=== PATIENT | female | born 1975 | race American Indian/Alaskan Native ===

== ENCOUNTER 2016-11-26 21:22 | Inpatient (IN) | payer SELFPAY ==
[2016-11-26] MEDS ORDERED: NACL 0.9% 1000 ML 0 ML ONE (22:28)
[2016-11-26] MEDS ORDERED: NACL 0.9% 1000 ML 1,000 ML ONE (22:40)
--- NOTE | 2016-11-26 22:57 | Emergency Department Report ---
HPI - General Chief Complaint: Altered Mental Status Time Seen by Provider: 11/26/16 22:18 - HPI HPI: This is a 41-year-old Afro-[place] female who presents to the emergency department by EMS from home with altered mental status. The patient was normal when she went up stairs earlier today to take a bath. She was in the bath for too long so family went to check on her and found her unresponsive in the bathtub. She did not appear to be submerged in the water but there was concern that she might of hit her head. She has not regained normal mentation since that time. She has a past medical history of diabetes on both pills and insulin , CHF, hypertension. EMS found the patient to have hypotension and she reached as low as a systolic in the 40s. Patient currently is only responsive to painful stimuli and therefore a poor historian. The patient's sister and daughter are bedside. ED Past Medical Hx - Past Medical History Hx Hypertension: Yes Hx Congestive Heart Failure: Yes Hx Diabetes: Yes Additional medical history: neuropathy - Surgical History Hx Cholecystectomy: Yes Additional Surgical History: - Social History Smoking Status: Never Smoker Substance Use Type: None - Medications Home Medications: Home Medications Medication Instructions Recorded Confirmed Last Taken Type Amitriptyline [Elavil] 10 mg PO QHS 11/27/16 11/27/16 Unknown History Carvedilol [Coreg] 25 mg PO BID 11/27/16 11/27/16 Unknown History Furosemide [Lasix TAB] 40 mg PO QDAY 11/27/16 11/27/16 Unknown History Insulin Aspart Prot/Aspart 40 units SQ QDAY 11/27/16 11/27/16 Unknown History [Novolog Mix 70/30] Insulin Detemir [Levemir] 80 unit SQ QDAY 11/27/16 11/27/16 Unknown History Ondansetron [Zofran TAB] 4 mg PO Q6H PRN 11/27/16 11/27/16 Unknown History Pregabalin [Lyrica] 200 mg PO TID 11/27/16 11/27/16 Unknown History Quinapril/Hydrochlorothiazide 1 each PO BID 11/27/16 11/27/16 Unknown History [Quinapril-Hctz 10-12.5 mg Tab] ED Review of Systems ROS: Stated complaint: SYNCOPE Other details as noted in HPI Comment: Unobtainable due to pts medical conditions Physical Exam - Physical Exam Vital Signs: Vital Signs 11/26/16 22:20 Temperature 97.2 F L Pulse Rate 85 Blood Pressure 55/31 O2 Sat by Pulse 93 Oximetry Physical Exam: GENERAL: The patient is well-developed well-nourished. HEENT: Normocephalic. Atraumatic. There is equal reactive to light bilaterally. Patient has moist mucous membranes. NECK: Supple. Trachea is midline. CHEST/LUNGS: Clear to auscultation. There is no respiratory distress noted. HEART/CARDIOVASCULAR: Regular. There is no tachycardia. There is no gallop rub or murmur. ABDOMEN: Abdomen is soft, nontender. Patient has normal bowel sounds. There is no abdominal distention. SKIN: There is no rash. There is no edema. There is no diaphoresis. NEURO: Patient has only arousable to painful stimuli. She does not follow any commands. Patient is nonverbal and nonresponsive. MUSCULOSKELETAL: There is no tenderness or deformity. There is no evidence of acute injury. ED Course Vital Signs 11/26/16 22:20 Temperature 97.2 F L Pulse Rate 85 Blood Pressure 55/31 O2 Sat by Pulse 93 Oximetry - Reevaluation(s) Reevaluation #1: patient is now awake and alert AAO x 3. She says she remembers feeling dizzy and then passed out and hit her head. She also complains of right knee pain so X -ray ordered. BP has stabilized but patient will be admitted for further evaluation. 11/27/16 00:33 ED Medical Decision Making - Lab Data Result diagrams: 11/26/16 22:46 11/26/16 22:46 - EKG Data -: EKG Interpreted by Me EKG shows normal: sinus rhythm, axis, intervals, QRS complexes, ST-T waves ( nonspecific ST-T) Rate: normal - EKG Data When compared to previous EKG there are: previous EKG unavailable Interpretation: nonspecific ST-T wave daniel - Radiology Data Radiology results: report reviewed, image reviewed interpreted by me: Chest x-ray did not show any acute process. Heart is normal shape and size. No effusions. No pneumothorax. No signs of pneumonia seen. X-ray of the right knee does not show any fracture, dislocation or any acute process. CT of the head does not show any acute process including no hemorrhage, mass, shift, diffuse edema or skull fracture. - Medical Decision Making 41-year-old female presents to the emergency department unresponsive after being found unresponsive in a bathtub about one hour after telling family she was going to take a bath. Patient was evaluated in the emergency Department with physical exam, labs, imaging EKG. At first on physical exam the patient is unresponsive to have anything but painful stimuli. She has normal sounding heart and lungs to auscultation. Vital signs are stable throughout her ED course. Eventually, just prior to admission, the patient became awake and alert , AAO 3. Now all cranial nerves are intact. CT of the brain does not show any bleed, shift, mass or any acute process. EKG did not show any signs of ST elevation IN. The patient's labs are mostly unremarkable except for a mild urinary tract infection. The labs do not show any etiology of the patient's transient altered mental status. Patient could've had a seizure versus prolonged syncope versus other. She did present with hypotension with a systolic blood pressure that was in the 50s and 60s. However the patient responded well to IV fluid resuscitation and even now has started to get more on the hypertensive side. She'll be admitted to the hospital for further evaluation and has been accepted for [facility] by the hospitalist, Dr. Hernandez. - Differential Diagnosis seizure, syncope, TIA, brain bleed, IN Critical Care Time: No Critical care attestation.: If time is entered above; I have spent that time in minutes in the direct care of this critically ill patient, excluding procedure time. ED Disposition Clinical Impression: Altered mental status Qualifiers: Altered mental status type: unspecified Qualified Code(s): R41.82 - Altered mental status, unspecified Hypotension Qualifiers: Hypotension type: unspecified hypotension type Qualified Code(s): I95.9 - Hypotension, unspecified UTI (urinary tract infection) Qualifiers: Urinary tract infection type: acute cystitis Hematuria presence: without hematuria Qualified Code(s): N30.00 - Acute cystitis without hematuria Disposition: OP ADMITTED IP TO THIS HOSP Is pt being admited?: Yes Condition: Stable Time of Disposition: 03:19
[2016-11-26 23:04] LABS: Basophils % (Auto) 0.4 % (0.0-1.8); Hemoglobin 13.4 gm/dl (10.1-14.3); Mean Corpuscular HGB Conc 34 % (30-34); Mean Corpuscular Hemoglobin 30 pg (28-32); Mean Corpuscular Volume 89 fl (79-97); Platelet Count 328 K/mm3 (140-440); Red Blood Count 4.52 M/mm3 (3.65-5.03); Red Cell Distribution Width 14.4 % (13.2-15.2); White Blood Count 4.8 K/mm3 (4.5-11.0)
[2016-11-26 23:14] LABS: INR 1.05 (0.87-1.13)
[2016-11-26 23:15] LABS: Partial Thromboplastin Time 27.6 Sec. (24.2-36.6)
--- NOTE | 2016-11-26 23:32 | Cat Scan Report ---
FINAL REPORT PROCEDURE: CT HEAD/BRAIN WO CON TECHNIQUE: Computerized tomography of the head was performed without contrast material. HISTORY: AMS COMPARISON: No prior studies are available for comparison. FINDINGS: Skull and scalp: Normal. Paranasal sinuses: Normal. Ventricles and subarachnoid spaces: Normal. Cerebrum: No evidence of hemorrhage, acute infarction or mass . Cerebellum and brainstem: No evidence of hemorrhage, acute infarction or mass. Vasculature: Normal. Comments: None. IMPRESSION: Normal Examination
[2016-11-26 23:36] LABS: Urine Drugs of Abuse Note Disclamer
[2016-11-26 23:38] LABS: Alanine Aminotransferase 18 units/L (7-56); Albumin 3.9 g/dL (3.9-5); Alkaline Phosphatase 81 units/L (35-129); Anion Gap 19 mmol/L; Bilirubin,Total 0.2 mg/dL (0.1-1.2); Blood Urea Nitrogen 13 mg/dL (7-17); Calcium 9.3 mg/dL (8.4-10.2); Carbon Dioxide 23 mmol/L (22-30); Chloride 97.9 mmol/L (98-107); Glucose 141 mg/dL (65-100); Potassium 4.1 mmol/L (3.6-5.0); Sodium 136 mmol/L (137-145); Total Protein 7.9 g/dL (6.3-8.2)
[2016-11-26 23:55] LABS: Bacteria,Urine 1+ /HPF (Negative); Bilirubin,Urine NEG (Negative); Blood,Urine NEG (Negative); Ketones,Urine NEG (Negative); Leukocyte Esterase,Urine MOD (Negative); Mucus,Urine FEW /HPF; Nitrite,Urine NEG (Negative)
[2016-11-27] MEDS ORDERED: LEVAQUIN 750MG/150ML 150 ML IV ONE (00:18)
--- NOTE | 2016-11-27 01:29 | Admit Criteria Form ---
Admission Criteria Documentation: ACUTE LOSS OF CONSCIOUSNESS- ALOC Clinical Indications for Inpatient Care (Place 'X' for any and all applicable criteria): Ongoing inpatient care may be needed for ANY ONE of the following(1)(2)(3)(5)(6) : [ ]I. Suspected serious etiology (eg, medical disorder, SHINGLE SAWYER event) of mental status change [ ]II. Danger to self or others not manageable at lower level of care [ ]III. Grave disability (eg, inability to perform self care necessary at lower level of care) [ ]IV. Agitation or inappropriate behavior interfering with care for primary condition (eg, attempting to discontinue lines or drains prematurely, unable to cooperate with respiratory care) [ ]V. Delirium [A] [D][E] as described by ANY ONE of the following(26): [ ]a) Delirium due to alcohol or sedative [F] withdrawal [ ]b) Delirium of uncertain etiology that has not responded to appropriate empiric treatment [ ]c) Delirium that prevents performance of a life-sustaining function (eg, feeding or hydrating oneself) [ X]. General contraindications and/or Inappropriate clinical situations for Observational Care in patients with Acute Loss of Consciousness, when ANY ONE of the following is required: [ ]a) Prediction of prolongation of LOS based on ANY ONE of the following may be considered as a contraindication for observational care 2, 3, 4, 5, 6, 7, 8 , 9, 10, 11 [ ]i) Age > 65 yrs. [ X]ii) Patient arriving by ambulance [X ]iii) Patient with high acuity [ X]iv) Patient requiring vital sign monitoring [ ]v) Patient on IV medication [ ]b) Systolic blood pressures 180mmHg 3,12 [ ]c) Patient with altered mental status including delirium and other alteration of consciousness, (3) [ ]d) Patient whose discharge disposition will be to a care home home or rehabilitation home should not be managed in Emergency Department Observation Unit. CMS rule requires 3 days hospital stay before such placement.3,13 [ ]e) Patient with failure to thrive due to broad array of etiologies 3,16,17 [ ]f) Inability to ambulate 3,14 Extended stay beyond goal length of stay for the primary condition may be needed until ALL of the following are present(3)(5): [ ]a) Underlying medical etiology of mental status change is absent, or has been established and adequately treated [ ]b) Danger to self or others is absent or manageable at lower level of care. [ ]c) Behavior crisis management, including physical or chemical restraints, is not required or available at lower level of car [ ]d) Substance or alcohol withdrawal is absent or manageable at lower level of care. [ ]e) Behavioral symptoms (eg, agitation, somnolence, inappropriate behavior) are absent, or are manageable at lower level of care. The original [facility] content created by [facility] has been revised. The portions of the content which have been revised are identified through the use of italic text or in bold, and [facility] has neither reviewed nor approved the modified material. All other unmodified content is copyright [facility]. Please see references footnoted in the original [facility] edition 2016 Admission Criteria Met: Yes
[2016-11-27] MEDS ORDERED: NORMODYNE IV ONE (03:09)
[2016-11-27] MEDS ORDERED: APRESOLINE IV PRN (03:23)
[2016-11-27] MEDS ORDERED: MILK OF MAGNESIA PO PRN (03:32)
[2016-11-27] MEDS ORDERED: ZOFRAN IV PRN (03:32)
[2016-11-27] MEDS ORDERED: DULCOLAX PR PRN (03:32)
[2016-11-27] MEDS ORDERED: TYLENOL ONE (03:45)
[2016-11-27] MEDS: TYLENOL PO PRN ×2 (03:53→15:51)
[2016-11-27 04:57] LABS: Creatine Kinase MB 1.7 ng/mL (0.0-4.0)
[2016-11-27 04:58] LABS: Creatine Kinase 122 units/L (30-135)
--- NOTE | 2016-11-27 05:40 | History and Physical Report ---
History of Present Illness Date of examination: 11/27/16 Date of admission: 11/27/16 03:32 History of present illness: 41-year-old woman with a history of hypertension, diabetes, CHF comes emergency room because she felt dizzy yesterday evening. She went to shower, she was taking long time, finally went to check on her and found her passed out in the bathroom. Patient was hypotensive upon arrival in the emergency room Patient denies chest pain, palpitation, shortness of breath, cough, abdominal pain, hematochezia, dysuria, frequency, focal weakness, dysarthria, fever chills , polydipsia polyuria, hot or cold intolerance, easy bruisability, or rash or bleeding from mucosal membrane, rhinorrhea, epistaxis, earache, tinnitus, blurry vision, eye discharge, anxiety, depression. Other review of systems negative PAST SURGICAL HISTORY: Cholecystectomy, SOCIAL HISTORY: Denies alcohol, tobacco, drugs FAMILY HISTORY: Hypertension Medications and Allergies Allergies Allergy/AdvReac Type Severity Reaction Status Date / Time codeine Allergy Rash Verified 11/26/16 22:27 Penicillins Allergy Anaphylaxis Verified 11/26/16 22:27 Home Medications Medication Instructions Recorded Confirmed Last Taken Type Amitriptyline [Elavil] 10 mg PO QHS 11/27/16 11/27/16 Unknown History Carvedilol [Coreg] 25 mg PO BID 11/27/16 11/27/16 Unknown History Furosemide [Lasix TAB] 40 mg PO QDAY 11/27/16 11/27/16 Unknown History Insulin Aspart Prot/Aspart 40 units SQ QDAY 11/27/16 11/27/16 Unknown History [Novolog Mix 70/30] Insulin Detemir [Levemir] 80 unit SQ QDAY 11/27/16 11/27/16 Unknown History Ondansetron [Zofran TAB] 4 mg PO Q6H PRN 11/27/16 11/27/16 Unknown History Pregabalin [Lyrica] 200 mg PO TID 11/27/16 11/27/16 Unknown History Quinapril/Hydrochlorothiazide 1 each PO BID 11/27/16 11/27/16 Unknown History [Quinapril-Hctz 10-12.5 mg Tab] Active Meds: Active Medications Acetaminophen (Tylenol) 650 mg PO Q4H PRN PRN Reason: Pain MILD(1-3)/Fever >100.5/NICHLOSON Last Admin: 11/27/16 03:53 Dose: 650 mg Bisacodyl (Dulcolax) 10 mg DC QDAY PRN PRN Reason: Constipation unrelieved by MOM Enoxaparin Sodium (Lovenox) 40 mg SUB-Q QDAY IZABELLA Hydralazine HCl (Apresoline) 5 mg IV Q6H PRN PRN Reason: Hypertension Magnesium Hydroxide (Milk Of Magnesia) 30 ml PO Q4H PRN PRN Reason: Constipation Ondansetron HCl (Zofran) 4 mg IV Q8H PRN PRN Reason: N/V unrelieved by Reglan Exam - Physical Exam Narrative exam: Gen. appearance: Patient lying in bed, no apparent distress HEENT: Normocephalic, atraumatic, pupils equally round and reactive to light, extraocular movement intact, and no sclericterus,. No JVD or thyromegaly or nodule,neck supple, no carotid bruit ,mucous membranes moist, no exudate or erythema Heart: S1, S2, regular rate and rhythm Lungs: Clear to auscultation bilaterally, breathing comfortable Abdomen: Positive bowel sounds, nontender, nondistended, no organomegaly Extremity: No edema, cyanosis, clubbing Skin: No rash, nodules, warm, dry Neuro: Oriented 3, cranial nerves II-12 intact, speech is fluent, motor and sensory intact - Constitutional Vitals: Temp Pulse Resp BP Pulse Ox 97.2 F L 95 H 15 118/90 100 11/26/16 22:20 11/27/16 05:00 11/27/16 05:00 11/27/16 05:00 11/27/16 05:00 Results - Labs CBC & Chem 7: 11/26/16 22:46 11/26/16 22:46 Labs: Abnormal lab results 11/27/16 Range/Units 04:06 D-Dimer 470.56 H (0-234) ng/mlDDU - Imaging and Cardiology CT Scan - head: report reviewed Assessment and Plan Syncope UTI Hypertension Diabetes of 2 CHF, stable Admits medicine Check cardiac enzymes, d-dimer, echo, carotid Doppler, orthostatics Consult cardiology Check fingersticks initiate insulin sliding scale, start levaquin Start DVT prophylaxis, continue Procrit outpatient medication D-dimer elevated, check VQ scan
--- NOTE | 2016-11-27 07:55 | Nuclear Medicine Report ---
LUNG SCAN, VENTILATION AND PERFUSION: History: Chest pain, syncope. Technique: 5mci of Tc99m MAA was infused for the perfusion images. 15mci XE 133 gas was inhaled for the ventilatory images. Correlation is made with a chest x-ray dated 11/26/16 at 2259 hrs. Findings: Inhalation of Xenon gas demonstrates a normal distribution of the activity throughout both lungs. The wash out phases show no focal retention of activity. After injection of Technetium 99m macroaggregated albumin gamma camera imaging of the lungs in multiple projections demonstrates normal pulmonary contours with a homogeneous distribution of activity. No focal areas of perfusion deficiency are identified. IMPRESSION: Low probability for pulmonary embolus.
--- NOTE | 2016-11-27 07:55 | XRay Report ---
AP CHEST: HISTORY: Chest pain, altered mental status Poor inspiration. AP view of the chest demonstrates a normal mediastinal and cardiac contour with clear lungs and normal bony and soft tissue structures. IMPRESSION: Unremarkable AP chest.
--- NOTE | 2016-11-27 07:56 | XRay Report ---
RIGHT KNEE, 3 views: History: Right knee pain. The bony architecture is intact without evidence of fracture or dislocation. No significant soft tissue abnormality is seen. IMPRESSION: Normal right knee.
[2016-11-27] MEDS: LYRICA PO SCH ×6 (08:45→20:40)
[2016-11-27] MEDS ORDERED: HCTZ PO SCH (10:00)
[2016-11-27 10:14] LABS: Creatine Kinase MB 1.6 ng/mL (0.0-4.0)
[2016-11-27 10:15] LABS: Creatine Kinase 146 units/L (30-135)
[2016-11-27] MEDS: COREG PO SCH ×2 (10:15→22:21)
[2016-11-27] MEDS: LASIX PO SCH (10:15)
[2016-11-27] MEDS: HCTZ PO SCH ×2 (10:15→22:26)
[2016-11-27] MEDS: LEVAQUIN PO SCH (10:15)
[2016-11-27] MEDS: LOVENOX SUB-Q SCH (10:22)
[2016-11-27] MEDS: ZESTRIL PO SCH ×2 (10:23→22:25)
[2016-11-27] MEDS ORDERED: ASPIRIN PO ONE (13:02)
--- NOTE | 2016-11-27 14:00 | Consultation ---
History of Present Illness Consult date: 11/27/16 Consult reason: syncope History of present illness: 41-year-old woman with a history of diabetes, brought to the hospital after being found unresponsive at home in her bathtub. She is currently awake, alert , denies chest pain or shortness of breath or palpitations. She cannot remember the events leading up to this syncope, and cannot remember how she got into the bathtub. There is no prior cardiac history. She reports episodes of syncope in the remote past, which she sees where associated with episodes of hypoglycemia. On the current presentation, after an exhaustive review of her incoming records from the field and in the emergency room, there is no report of a blood sugar measurement at the time of her first encounter with the emergency medical system. The hospital laboratory value drawn in the emergency room blood sugar was 141. It is uncertain if she has had intravenous fluids and given dextrose prior to this measurement. Cardiac workup includes an ECG, that revealed normal sinus rhythm, borderline inferior Q waves otherwise normal ECG. Cardiac enzymes were normal. Chest x- ray is negative. Past History Past Medical History: diabetes, hypertension, other (Obesity) Medications and Allergies Allergies Allergy/AdvReac Type Severity Reaction Status Date / Time codeine Allergy Rash Verified 11/26/16 22:27 Penicillins Allergy Anaphylaxis Verified 11/26/16 22:27 Home Medications Medication Instructions Recorded Confirmed Last Taken Type Amitriptyline [Elavil] 10 mg PO QHS 11/27/16 11/27/16 Unknown History Carvedilol [Coreg] 25 mg PO BID 11/27/16 11/27/16 Unknown History Furosemide [Lasix TAB] 40 mg PO QDAY 11/27/16 11/27/16 Unknown History Insulin Aspart Prot/Aspart 40 units SQ QDAY 11/27/16 11/27/16 Unknown History [Novolog Mix 70/30] Insulin Detemir [Levemir] 80 unit SQ QDAY 11/27/16 11/27/16 Unknown History Ondansetron [Zofran TAB] 4 mg PO Q6H PRN 11/27/16 11/27/16 Unknown History Pregabalin [Lyrica] 200 mg PO TID 11/27/16 11/27/16 Unknown History Quinapril/Hydrochlorothiazide 1 each PO BID 11/27/16 11/27/16 Unknown History [Quinapril-Hctz 10-12.5 mg Tab] Active Meds: Active Medications Acetaminophen (Tylenol) 650 mg PO Q4H PRN PRN Reason: Pain MILD(1-3)/Fever >100.5/NICHOLSON Last Admin: 11/27/16 03:53 Dose: 650 mg Amitriptyline HCl (Elavil) 10 mg PO QHS [facility] Bisacodyl (Dulcolax) 10 mg MA QDAY PRN PRN Reason: Constipation unrelieved by MOM Carvedilol (Coreg) 25 mg PO BID [facility] Last Admin: 11/27/16 10:15 Dose: 25 mg Enoxaparin Sodium (Lovenox) 40 mg SUB-Q QDAY [facility] Last Admin: 11/27/16 10:22 Dose: 40 mg Furosemide (Lasix) 40 mg PO QDAY [facility] Last Admin: 11/27/16 10:15 Dose: 40 mg Hydralazine HCl (Apresoline) 5 mg IV Q6H PRN PRN Reason: Hypertension Hydrochlorothiazide (Hctz) 12.5 mg PO BID [facility] Last Admin: 11/27/16 10:15 Dose: 12.5 mg Levofloxacin (Levaquin) 500 mg PO Q24HR [facility] Last Admin: 11/27/16 10:15 Dose: 500 mg Lisinopril (Zestril) 5 mg PO BID [facility] Last Admin: 11/27/16 10:23 Dose: 5 mg Magnesium Hydroxide (Milk Of Magnesia) 30 ml PO Q4H PRN PRN Reason: Constipation Ondansetron HCl (Zofran) 4 mg IV Q8H PRN PRN Reason: N/V unrelieved by Reglan Pregabalin (Lyrica) 150 mg PO TID [facility] Last Admin: 11/27/16 08:45 Dose: 150 mg Pregabalin (Lyrica) 50 mg PO TID [facility] Last Admin: 11/27/16 08:45 Dose: 50 mg Review of Systems Cardiovascular: syncope, no chest pain, no orthopnea, no palpitations, no rapid/ irregular heart beat, no edema, no lightheadedness, no shortness of breath Physical Examination Vital Signs Temp Pulse BP Pulse Ox 97.2 F L 85 55/31 93 11/26/16 22:20 11/26/16 22:20 11/26/16 22:20 11/26/16 22:20 General appearance: no acute distress HEENT: Positive: PERRL Neck: Positive: neck supple Cardiac: Positive: Reg Rate and Rhythm Lungs: Positive: clear to auscultation Neuro: Positive: Grossly Intact Abdomen: Positive: Soft Female genitourinary: deferred Skin: Positive: Clear Extremities: Absent: edema Results 11/26/16 22:46 11/26/16 22:46 Cardiac Enzymes 11/27/16 11/27/16 Range/Units 04:06 09:08 CK-MB (CK-2) 1.7 1.6 (0.0-4.0) ng/mL EKG interpretations - Telemetry EKG Rhythm: Sinus Rhythm Assessment and Plan - Patient Problems (1) Syncope Current Visit: Yes Status: Acute Plan to address problem: Etiology of the patient's unresponsiveness unclear, likely etiologies include hypoglycemia, versus vasodepressive syncope versus neurogenic syncope. Doubt cardiac etiology. Recommendations: Neuro workup is in recommended including workup for possible seizures. We will get an echocardiogram for left ventricular function assessment. Otherwise, conservative cardiac approach to management.
[2016-11-27] MEDS: NOVOLOG SUB-Q SCH ×2 (16:18→22:49)
--- NOTE | 2016-11-27 17:44 | Echocardiography Report ---
Transthoracic Echocardiogram Indication: SYNCOPE BP: 153/106 HR: 100 Findings Procedure Info: The study quality is technically difficult. The study is technically limited due to poor acoustic windows. The study is technically limited due to patient body habitus. Left Ventricle: The left ventricular chamber size is normal. Mild to moderate concentric left ventricular hypertrophy is observed. Global left ventricular systolic function is normal. The estimated ejection fraction is 55-60%. Left Atrium: The left atrial chamber size is normal. Right Ventricle: The right ventricle is not well visualized. The right ventricular cavity size is normal. The right ventricular global systolic function is normal. Right Atrium: The right atrium is not well visualized. The right atrial cavity size is normal. Aortic Valve: The aortic valve is trileaflet. The aortic valve leaflets are mildly thickened. There is no evidence of aortic regurgitation. There is no evidence of aortic stenosis. Mitral Valve: The mitral valve is not well visualized. The mitral valve leaflets appear myxomatous. The mitral valve leaflets are mildly thickened. There is mild mitral regurgitation. There is no evidence of mitral stenosis. Tricuspid Valve: The tricuspid valve is not well visualized. There is trace tricuspid regurgitation. No pulmonary hypertension is noted. There is no tricuspid stenosis. Pulmonic Valve: The pulmonic valve is not well visualized. There is no evidence of pulmonic regurgitation. There is no pulmonic stenosis. Pericardium: There is no pericardial effusion. No pleural effusion is present. Aorta: There is no dilatation of the ascending aorta. There is no dilatation of the aortic root. Contrast: Definity was used to optimize study. Intravenous contrast was used to enhance endocardial border definition. Measurements Chambers 2D Name Value Normal Range IVSd (2D) 1.14 cm (0.6 - 1.1) LVPWd 1.2 cm - LVPWd (2D) 1.2 cm (0.6 - 1.1) IVS:LVPW ratio (2D) 0.95 ratio - LVIDd 3.2 cm - LVIDs 2.4 cm - LVIDd (2D) 3.22 cm (3.7 - 5.6) LVIDs (2D) 2.37 cm (2 - 3.8) LV FS (Teichholz) (2D) 26.4 % - LV FS (cube) (2D) 26.4 % - EF Teichholz (2D) 53.1 % - LA dimension 2.8 cm - Ao root diameter (2D) 2.6 cm (2 - 3.7) LA dimension (AP) 2D 2.8 cm (1.9 - 4) LA:Ao ratio (2D) 1.08 ratio - Volumes/Mass Name Value Normal Range LA ESV SP 4CH (MOD) 9 ml - LV EDV SP 4CH (MOD) 42 ml - LV ESV SP 4CH (MOD) 13 ml - EF SP 4CH (MOD) 69 % - Diastolic/Systolic Function Name Value Normal Range MV E-wave Vmax 0.42 m/sec - MV deceleration time 140 msec - MV A-wave Vmax 0.7 m/sec - MV E:A ratio 0.6 ratio - LV septal e' Vmax 0.06 m/sec - LV lateral e' Vmax 0.13 m/sec - LV E:e' septal ratio 7.4 ratio - LV E:e' lateral ratio 3.2 ratio - Aortic Valve Name Value Normal Range AV Vmax 1.11 m/sec - AV VTI 15.5 cm - AV peak gradient 5 mmHg - AV mean gradient 3 mmHg - LVOT diameter 1.8 cm - LVOT Vmax 0.8 m/sec - LVOT peak gradient 3 mmHg - HANNAH (continuity Vmax) 1.82 cm2 - Pulmonic Valve/Qp:Qs Name Value Normal Range PV Vmax 0.72 m/sec - PV peak gradient 2 mmHg - PV acceleration time 100 msec -
[2016-11-27] MEDS: ELAVIL PO SCH (22:23)
--- NOTE | 2016-11-28 13:26 | Progress Note ---
Assessment and Plan Syncope, etiology unclear likely etiologies include hypoglycemia, versus vasodepressive syncope versus neurogenic syncope. Doubt cardiac etiology. echo done this admission shows an LVEF 50-55% Diabetes Recommendations: Neuro workup is in recommended including workup for possible seizures. Otherwise, conservative cardiac management. Subjective Date of service: 11/28/16 Interval history: Patient complains of left shoulder pain. Objective Vital Signs Temp Pulse Pulse Pulse Pulse Resp BP 11/28/16 03:39 97.6 F 94 H 20 11/28/16 00:00 99.3 F 101 H 21 11/27/16 22:25 109/77 11/27/16 22:21 107 H 110/77 11/27/16 22:00 103 H 11/27/16 20:30 11/27/16 20:00 98.6 F 101 H 20 11/27/16 18:35 102 H 11/27/16 16:57 98.5 F 103 H 20 BP BP Pulse Ox 11/28/16 03:39 91/65 96 11/28/16 00:00 129/81 96 11/27/16 22:25 11/27/16 22:21 11/27/16 22:00 98 11/27/16 20:30 98 11/27/16 20:00 109/78 93 11/27/16 18:35 111/76 11/27/16 16:57 101/69 97 - Physical Examination General: No Apparent Distress HEENT: Positive: PERRL Neck: Positive: neck supple Cardiac: Positive: Reg Rate and Rhythm Lungs: Positive: Decreased Breath Sounds Neuro: Positive: Grossly Intact Extremities: Absent: edema
[2016-11-28] MEDS: LYRICA PO SCH ×6 (13:36→20:44)
[2016-11-28 14:40] LABS: Hematocrit 41.1 % (30.3-42.9); Hemoglobin 13.5 gm/dl (10.1-14.3); Mean Corpuscular HGB Conc 33 % (30-34); Mean Corpuscular Hemoglobin 29 pg (28-32); Mean Corpuscular Volume 88 fl (79-97); Mean Platelet Volume 8.7 fl (6-12); Platelet Count 274 K/mm3 (140-440); Red Blood Count 4.65 M/mm3 (3.65-5.03); Red Cell Distribution Width 14.3 % (13.2-15.2); White Blood Count 4.3 K/mm3 (4.5-11.0)
[2016-11-28 14:47] LABS: Basophils % (Manual) 0 % (0.0-1.8); Blastocytes % (Manual) 0 %
[2016-11-28 14:48] LABS: Anisocytosis Few; Diff Status Complete
[2016-11-28 14:50] LABS: BUN/Creatinine Ratio 16.66; Blood Urea Nitrogen 15 mg/dL (7-17); Calcium 9.5 mg/dL (8.4-10.2); Carbon Dioxide 25 mmol/L (22-30); Chloride 91.3 mmol/L (98-107); Eosinophils % (Auto) 0.9 % (0.0-4.3); Glucose 429 mg/dL (65-100); Potassium 4.5 mmol/L (3.6-5.0); Sodium 130 mmol/L (137-145)
[2016-11-28 15:17] LABS: Anion Gap 18 mmol/L
--- NOTE | 2016-11-28 15:20 | XRay Report ---
LEFT SHOULDER: History: Left shoulder pain after fall. Routine views demonstrate normal bony and soft tissue structures with normal joint alignment of the shoulder. IMPRESSION: Normal study.
[2016-11-28] MEDS: NOVOLOG SUB-Q SCH ×3 (17:59→22:27)
--- NOTE | 2016-11-28 19:28 | Progress Note ---
History Interval history: c/o pain left anterior chest, shoulder and upper arm; worse with movement Hospitalist Physical - Constitutional Vitals: Temp Pulse Resp BP Pulse Ox 98.5 F 94 H 20 104/64 97 11/28/16 15:34 11/28/16 15:34 11/28/16 15:34 11/28/16 15:34 11/28/16 15:34 General appearance: Present: no acute distress Results - Labs CBC & Chem 7: 11/28/16 04:00 11/28/16 04:00 Labs: Laboratory Last Values WBC 4.3 K/mm3 (4.5-11.0) L 11/28/16 04:00 RBC 4.65 M/mm3 (3.65-5.03) 11/28/16 04:00 Hgb 13.5 gm/dl (10.1-14.3) 11/28/16 04:00 Hct 41.1 % (30.3-42.9) 11/28/16 04:00 MCV 88 fl (79-97) 11/28/16 04:00 MCH 29 pg (28-32) 11/28/16 04:00 MCHC 33 % (30-34) 11/28/16 04:00 RDW 14.3 % (13.2-15.2) 11/28/16 04:00 Plt Count 274 K/mm3 (140-440) 11/28/16 04:00 Lymph % (Auto) 28.2 % (13.4-35.0) 11/26/16 22:46 [place] % (Auto) 17.4 % (0.0-7.3) H 11/28/16 04:00 Eos % (Auto) 0.9 % (0.0-4.3) 11/28/16 04:00 Baso % (Auto) 0.4 % (0.0-1.8) 11/26/16 22:46 Lymph # 1.4 K/mm3 (1.2-5.4) 11/26/16 22:46 [place] # 0.7 K/mm3 (0.0-0.8) 11/28/16 04:00 Eos # 0.0 K/mm3 (0.0-0.4) 11/28/16 04:00 Baso # 0.0 K/mm3 (0.0-0.1) 11/28/16 04:00 Add Manual Diff Complete 11/28/16 04:00 Total Counted 100 11/28/16 04:00 Seg Neutrophils % 26.9 % (40.0-70.0) L 11/28/16 04:00 Seg Neuts % (Manual) 27.0 % (40.0-70.0) L 11/28/16 04:00 Band Neutrophils % 0 % 11/28/16 04:00 Lymphocytes % (Manual) 54.0 % (13.4-35.0) H 11/28/16 04:00 Reactive Lymphs % (Man) 3.0 % 11/28/16 04:00 Monocytes % (Manual) 15.0 % (0.0-7.3) H 11/28/16 04:00 Eosinophils % (Manual) 1.0 % (0.0-4.3) 11/28/16 04:00 Basophils % (Manual) 0 % (0.0-1.8) 11/28/16 04:00 Metamyelocytes % 0 % 11/28/16 04:00 Myelocytes % 0 % 11/28/16 04:00 Promyelocytes % 0 % 11/28/16 04:00 Blast Cells % 0 % 11/28/16 04:00 Nucleated RBC % Not Reportable 11/28/16 04:00 Seg Neutrophils # 1.2 K/mm3 (1.8-7.7) L 11/28/16 04:00 Seg Neutrophils # Man 1.2 K/mm3 (1.8-7.7) L 11/28/16 04:00 Band Neutrophils # 0.0 K/mm3 11/28/16 04:00 Lymphocytes # (Manual) 2.3 K/mm3 (1.2-5.4) 11/28/16 04:00 Abs React Lymphs (Man) 0.1 K/mm3 11/28/16 04:00 Monocytes # (Manual) 0.6 K/mm3 (0.0-0.8) 11/28/16 04:00 Eosinophils # (Manual) 0.0 K/mm3 (0.0-0.4) 11/28/16 04:00 Basophils # (Manual) 0.0 K/mm3 (0.0-0.1) 11/28/16 04:00 Metamyelocytes # 0.0 K/mm3 11/28/16 04:00 Myelocytes # 0.0 K/mm3 11/28/16 04:00 Promyelocytes # 0.0 K/mm3 11/28/16 04:00 Blast Cells # 0.0 K/mm3 11/28/16 04:00 WBC Morphology Not Reportable 11/28/16 04:00 Hypersegmented Neuts Not Reportable 11/28/16 04:00 Hyposegmented Neuts Not Reportable 11/28/16 04:00 Hypogranular Neuts Not Reportable 11/28/16 04:00 Smudge Cells Not Reportable 11/28/16 04:00 Toxic Granulation Not Reportable 11/28/16 04:00 Toxic Vacuolation Not Reportable 11/28/16 04:00 Dohle Bodies Not Reportable 11/28/16 04:00 Pelger-Huet Anomaly Not Reportable 11/28/16 04:00 Jean-Pierre Rods Not Reportable 11/28/16 04:00 Platelet Estimate Appears normal 11/28/16 04:00 Clumped Platelets Not Reportable 11/28/16 04:00 Plt Clumps, EDTA Not Reportable 11/28/16 04:00 Large Platelets Not Reportable 11/28/16 04:00 Giant Platelets Not Reportable 11/28/16 04:00 Platelet Satelliting Not Reportable 11/28/16 04:00 Plt Morphology Comment Not Reportable 11/28/16 04:00 RBC Morphology Not Reportable 11/28/16 04:00 Dimorphic RBCs Not Reportable 11/28/16 04:00 Polychromasia Not Reportable 11/28/16 04:00 Hypochromasia Not Reportable 11/28/16 04:00 Poikilocytosis Not Reportable 11/28/16 04:00 Anisocytosis Few 11/28/16 04:00 Microcytosis Not Reportable 11/28/16 04:00 Macrocytosis Not Reportable 11/28/16 04:00 Spherocytes Not Reportable 11/28/16 04:00 Pappenheimer Bodies Not Reportable 11/28/16 04:00 Sickle Cells Not Reportable 11/28/16 04:00 Target Cells Not Reportable 11/28/16 04:00 Tear Drop Cells Not Reportable 11/28/16 04:00 Ovalocytes Not Reportable 11/28/16 04:00 Helmet Cells Not Reportable 11/28/16 04:00 Brunson-Pima Bodies Not Reportable 11/28/16 04:00 Richardson Rings Not Reportable 11/28/16 04:00 Terence Cells Not Reportable 11/28/16 04:00 Bite Cells Not Reportable 11/28/16 04:00 Crenated Cell Not Reportable 11/28/16 04:00 Elliptocytes Not Reportable 11/28/16 04:00 Acanthocytes (Spur) Not Reportable 11/28/16 04:00 Rouleaux Not Reportable 11/28/16 04:00 Hemoglobin C Crystals Not Reportable 11/28/16 04:00 Schistocytes Not Reportable 11/28/16 04:00 Malaria parasites Not Reportable 11/28/16 04:00 Alexis Bodies Not Reportable 11/28/16 04:00 Hem Pathologist Commnt No 11/28/16 04:00 PT 13.6 Sec. (12.2-14.9) 11/26/16 22:46 INR 1.05 (0.87-1.13) 11/26/16 22:46 APTT 27.6 Sec. (24.2-36.6) 11/26/16 22:46 D-Dimer 470.56 ng/mlDDU (0-234) H 11/27/16 04:06 Sodium 130 mmol/L (137-145) L 11/28/16 04:00 Potassium 4.5 mmol/L (3.6-5.0) 11/28/16 04:00 Chloride 91.3 mmol/L (98-107) L 11/28/16 04:00 Carbon Dioxide 25 mmol/L (22-30) 11/28/16 04:00 Anion Gap 18 mmol/L 11/28/16 04:00 BUN 15 mg/dL (7-17) 11/28/16 04:00 Creatinine 0.9 mg/dL (0.7-1.2) 11/28/16 04:00 Estimated GFR > 60 ml/min 11/28/16 04:00 BUN/Creatinine Ratio 16.66 % 11/28/16 04:00 Glucose 429 mg/dL (65-100) H 11/28/16 04:00 POC Glucose 368 (70-105) H 11/27/16 21:29 Lactic Acid 2.2 mmol/L (0.7-2.0) H* 11/26/16 23:31 Calcium 9.5 mg/dL (8.4-10.2) 11/28/16 04:00 Total Bilirubin 0.2 mg/dL (0.1-1.2) 11/26/16 22:46 AST 15 units/L (5-40) 11/26/16 22:46 ALT 18 units/L (7-56) 11/26/16 22:46 Alkaline Phosphatase 81 units/L (35-129) 11/26/16 22:46 Ammonia 46.0 umol/L (25-60) 11/26/16 23:31 Total Creatine Kinase 146 units/L (30-135) H 11/27/16 09:08 CK-MB (CK-2) 1.6 ng/mL (0.0-4.0) 11/27/16 09:08 CK-MB (CK-2) Rel Index 1.0 (0-4) 11/27/16 09:08 Troponin T < 0.010 ng/mL (0.00-0.029) 11/27/16 09:08 Total Protein 7.9 g/dL (6.3-8.2) 11/26/16 22:46 Albumin 3.9 g/dL (3.9-5) 11/26/16 22:46 Albumin/Globulin Ratio 1.0 % 11/26/16 22:46 TSH 1.030 mlU/mL (0.270-4.200) 11/26/16 22:46 Urine Color Yellow (Yellow) 11/26/16 23:28 Urine Turbidity Slightly-cloudy (Clear) 11/26/16 23:28 Urine pH 5.0 (5.0-7.0) 11/26/16 23:28 Ur Specific [place] 1.018 (1.003-1.030) 11/26/16 23:28 Urine Protein 100 mg/dl mg/dL (Negative) 11/26/16 23:28 Urine Glucose (UA) >=500 mg/dL (Negative) 11/26/16 23:28 Urine Ketones Neg mg/dL (Negative) 11/26/16 23: Urine Blood Neg (Negative) 11/26/16 23:28 Urine Nitrite Neg (Negative) 11/26/16 23:28 Urine Bilirubin Neg (Negative) 11/26/16 23:28 Urine Urobilinogen 2.0 mg/dL (<2.0) 11/26/16 23:28 Ur Leukocyte Esterase Mod (Negative) 11/26/16 23:28 Urine WBC (Auto) 25.0 /HPF (0.0-6.0) H 11/26/16 23:28 Urine RBC (Auto) 1.0 /HPF (0.0-6.0) 11/26/16 23:28 U Epithel Cells (Auto) 5.0 /HPF (0-13.0) 11/26/16 23:28 Urine Bacteria (Auto) 1+ /HPF (Negative) 11/26/16 23:28 Ur Transition Epith Cell 1 /HPF 11/26/16 23:28 Calcium Oxalate Crystal 1+ 11/26/16 23:28 Hyaline Casts 18 /LPF 11/26/16 23:28 Urine Mucus Few /HPF 11/26/16 23:28 Urine HCG, Qual Negative (Negative) 11/26/16 23:28 Urine Opiates Screen Presumptive negative 11/26/16 23:28 Urine Methadone Screen Presumptive negative 11/26/16 23:28 Ur Barbiturates Screen Presumptive negative 11/26/16 23:28 Ur Phencyclidine Scrn Presumptive negative 11/26/16 23:28 Ur Amphetamines Screen Presumptive negative 11/26/16 23:28 U Benzodiazepines Scrn Presumptive negative 11/26/16 23:28 Urine Cocaine Screen Presumptive negative 11/26/16 23:28 U Marijuana (THC) Screen Presumptive negative 11/26/16 23:28 Drugs of Abuse Note Disclamer 11/26/16 23:28 Plasma/Serum Alcohol < 0.01 gm% (0-0.07) 11/26/16 23:31 Blood Type O POSITIVE 11/26/16 23:31 Antibody Screen Negative 11/26/16 23:31
[2016-11-28] MEDS: LASIX PO SCH (19:43)
[2016-11-28] MEDS: ZESTRIL PO SCH ×2 (19:43→22:21)
[2016-11-28] MEDS: LOVENOX SUB-Q SCH (19:43)
[2016-11-28] MEDS: LEVAQUIN PO SCH (19:43)
[2016-11-28] MEDS: COREG PO SCH ×2 (19:44→22:21)
[2016-11-28] MEDS: HCTZ PO SCH ×2 (19:44→22:22)
[2016-11-28] MEDS: TYLENOL PO PRN (19:56)
[2016-11-28] MEDS: ELAVIL PO SCH (22:22)
[2016-11-29] MEDS: NOVOLOG SUB-Q SCH ×2 (08:15→12:20)
[2016-11-29] MEDS: LYRICA PO SCH ×2 (08:15)
--- NOTE | 2016-11-29 10:13 | Progress Note ---
Assessment and Plan Syncope, etiology unclear likely etiologies include hypoglycemia, versus vasodepressive syncope versus neurogenic syncope. Doubt cardiac etiology. echo done this admission shows an LVEF 50-55% Left shoulder pain normal x-ray Diabetes Recommendations: Neuro workup is in recommended including workup for possible seizures. Otherwise, conservative cardiac management. Subjective Date of service: 11/29/16 Interval history: Patient still with complaints of left shoulder pain. Objective Vital Signs Temp Pulse Pulse Pulse Pulse Pulse Resp 11/29/16 07:51 98.0 F 88 20 11/29/16 04:10 97.9 F 86 20 11/29/16 00:10 97.8 F 90 20 11/28/16 22:24 98 H 11/28/16 21:05 11/28/16 20:31 98 H 20 11/28/16 15:34 98.5 F 94 H 20 11/28/16 14:00 90 11/28/16 11:52 BP BP Pulse Ox 11/29/16 07:51 97/66 98 11/29/16 04:10 96/64 96 11/29/16 00:10 104/63 95 11/28/16 22:24 112/71 11/28/16 21:05 99 11/28/16 20:31 100/68 95 11/28/16 15:34 104/64 97 11/28/16 14:00 11/28/16 11:52 96 - Physical Examination General: No Apparent Distress HEENT: Positive: PERRL Neck: Positive: neck supple Cardiac: Positive: Reg Rate and Rhythm Lungs: Positive: Decreased Breath Sounds Neuro: Positive: Grossly Intact Extremities: Absent: edema - Labs and Meds CBC 11/28/16 Range/Units 04:00 WBC 4.3 L (4.5-11.0) K/mm3 RBC 4.65 (3.65-5.03) M/mm3 Hgb 13.5 (10.1-14.3) gm/dl Hct 41.1 (30.3-42.9) % Plt Count 274 (140-440) K/mm3 [place] # 0.7 (0.0-0.8) K/mm3 Eos # 0.0 (0.0-0.4) K/mm3 Baso # 0.0 (0.0-0.1) K/mm3 Comprehensive Metabolic Panel 11/28/16 Range/Units 04:00 Sodium 130 L (137-145) mmol/L Potassium 4.5 (3.6-5.0) mmol/L Chloride 91.3 L (98-107) mmol/L Carbon Dioxide 25 (22-30) mmol/L BUN 15 (7-17) mg/dL Creatinine 0.9 (0.7-1.2) mg/dL Glucose 429 H (65-100) mg/dL Calcium 9.5 (8.4-10.2) mg/dL
[2016-11-29] MEDS: LASIX PO SCH (10:19)
[2016-11-29] MEDS: HCTZ PO SCH (10:19)
[2016-11-29] MEDS: COREG PO SCH (10:19)
[2016-11-29] MEDS: LEVAQUIN PO SCH (10:20)
[2016-11-29] MEDS: LOVENOX SUB-Q SCH (10:20)
[2016-11-29] MEDS: ZESTRIL PO SCH (10:20)
[2016-11-29 10:53] VITALS: BP 96/68
--- NOTE | 2016-11-29 12:41 | Discharge Summary ---
Providers - Providers Date of Admission: 11/27/16 03:32 Date of discharge: 11/29/16 Attending physician: OPAL FERRER CONSULTS: Cardiology Primary care physician: BRIEN ACEVES MD Hospitalization Reason for admission: syncopal episode Condition: Stable Disposition: DISCHARGED TO HOME OR SELFCARE Time spent for discharge: 35 min Core Measure Documentation - Palliative Care Palliative Care/ Comfort Measures: Not Applicable - Core Measures Any of the following diagnoses?: none Exam - Constitutional Vitals: Temp Pulse Resp BP Pulse Ox 98.1 F 94 H 20 96/68 98 11/29/16 10:52 11/29/16 10:52 11/29/16 10:52 11/29/16 10:52 11/29/16 07:51 Plan Activity: advance as tolerated Diet: low cholesterol, low salt Follow up with: PRIMARY CARE, [Primary Care Provider] - 3-5 Days [facility] [Outside] - 7 Days Prescriptions: Carvedilol [Coreg] 6.25 mg PO BID #60 tablet Hydrochlorothiazide [HCTZ] 12.5 mg PO QDAY #30 capsule Insulin Detemir [Levemir VIAL] 80 unit SQ QDAY #1 vial Levofloxacin [Levaquin TAB] 500 mg PO Q24HR #4 tablet Lisinopril [Zestril TAB] 5 mg PO QDAY #30 tablet
== END 2016-11-29 15:40 | disposition home or self-care (01) | DRG 312 ==
LOC: ED 21:22 → 4A 11-27 03:32
PROVIDERS: ADMIT Internal Medicine; ATTEND Internal Medicine
DX: R55 Syncope and collapse (principal); N39.0 Urinary tract infection, site not specified; E11.9 Type 2 diabetes mellitus without complications; I50.9 Heart failure, unspecified; I11.0 Hypertensive heart disease with heart failure; E16.2 Hypoglycemia, unspecified; M25.512 Pain in left shoulder; E66.9 Obesity, unspecified; Z68.37 Body mass index [BMI] 37.0-37.9, adult; Z90.49 Acquired absence of other specified parts of digestive tract; Z88.6 Allergy status to analgesic agent; Z88.0 Allergy status to penicillin; Z82.49 Family history of ischemic heart disease and other diseases of the circulatory system
CPT/HCPCS: 36415; 70450; 71010; 78582; 80048; 80053; 80307; 80320; 81001; 81025; 82140; 82550; 82553; 82962; 84443; 84484; 85007; 85025; 85379; 85610; 85730; 86850; 86900; 86901; 87076; 87086; 87186; 93005; 93010; 93306; 96365; 96366; 96372; 96375; A9540; A9558; G0480; J1650; J1815; J1956; J7030